=== PATIENT | male | born 1970 | race Caucasian/White ===

== ENCOUNTER 2021-02-08 02:46 | Emergency (ER) | payer OTHER ==
[~2021-02-08] VITALS: Ht 180.3 cm; Wt 79.0 kg
[2021-02-08 02:59] VITALS: BP 111/74
[2021-02-08] MEDS ORDERED: NO HOME MEDS (03:00)
== END 2021-02-08 04:21 ==
LOC: ER 02:47
DX: S60.511A Abrasion of right hand, initial encounter (principal); M25.512 Pain in left shoulder; F10.129 Alcohol abuse with intoxication, unspecified; F17.200 Nicotine dependence, unspecified, uncomplicated; Z72.89 Other problems related to lifestyle; V89.2XXA Person injured in unspecified motor-vehicle accident, traffic, initial encounter; Y93.89 Activity, other specified; Y92.89 Other specified places as the place of occurrence of the external cause; Y99.8 Other external cause status; Y90.9 Presence of alcohol in blood, level not specified
CPT/HCPCS: 71045; 99283